=== PATIENT | female | born 1970 | race Caucasian/White ===

== ENCOUNTER 2020-11-05 14:16 | Emergency (ER) | payer MEDICAID ==
[~2020-11-05] VITALS: Ht 162.6 cm; Wt 81.8 kg
[2020-11-05 15:05] VITALS: BP 116/62
== END 2020-11-05 17:01 | disposition home or self-care (01) ==
LOC: ER 14:16
DX: U07.1 COVID-19 (principal); R07.89 Other chest pain
CPT/HCPCS: 71045; 99283

== ENCOUNTER 2025-08-09 14:29 | Emergency (ER) | payer MEDICAID ==
[~2025-08-09] VITALS: Ht 167.6 cm; Wt 91.0 kg
[2025-08-09 14:31] VITALS: O2SAT 98
[2025-08-09] MEDS: ACETAMINOPHEN 325MG TABLET PO ONE (16:12)
[2025-08-09] MEDS ORDERED: METH-653 MT (16:23)
[2025-08-09] MEDS ORDERED: IBUP-1455 MT (16:23)
[2025-08-09 17:22] VITALS: BP 156/94; PULSE 82; RESP 16; TEMP 36.8; O2SAT 99
== END 2025-08-09 17:23 | disposition home or self-care (01) ==
LOC: ER 14:40
DX: S13.4XXA Sprain of ligaments of cervical spine, initial encounter (principal); S09.90XA Unspecified injury of head, initial encounter; E04.1 Nontoxic single thyroid nodule; E11.9 Type 2 diabetes mellitus without complications; W10.9XXA Fall (on) (from) unspecified stairs and steps, initial encounter; Y93.89 Activity, other specified; Y92.009 Unspecified place in unspecified non-institutional (private) residence as the place of occurrence of the external cause; Y99.8 Other external cause status
CPT/HCPCS: 73502; 99284